=== PATIENT | female | born 1975 | race Caucasian/White ===

== ENCOUNTER 2017-03-04 08:29 | Emergency (ER) | payer MEDICAID ==
[2017-03-04 08:51] VITALS: BP 155/102
--- NOTE | 2017-03-04 09:41 | Emergency Department Report ---
ED ENT HPI - General Chief complaint: Sore Throat Stated complaint: STREP THROAT Time Seen by Provider: 03/04/17 09:19 Source: patient Mode of arrival: Ambulatory Limitations: No Limitations - History of Present Illness Initial comments: PT c/o sore throat x 2 days. Worse with swallowing. Son also sick with fever. MD complaint: sore throat Onset/Timin -: Gradual, days(s) Location: throat Severity: moderate Severity scale (0 -10): 5 Quality: aching Consistency: constant Worsens with: swallowing, eating Associated Symptoms: pain with swallowing, sore throat. denies: fever, cough - Related Data Previous Rx's Medication Instructions Recorded Last Taken Type Amoxicillin 500 mg PO BID #20 capsule 03/04/17 Unknown Rx Allergies Allergy/AdvReac Type Severity Reaction Status Date / Time No Known Allergies Allergy Unverified 03/04/17 08:51 ED Dental HPI - General Chief complaint: Sore Throat Stated complaint: STREP THROAT Time Seen by Provider: 03/04/17 09:19 Source: patient Mode of arrival: Ambulatory Limitations: No Limitations - Related Data Previous Rx's Medication Instructions Recorded Last Taken Type Amoxicillin 500 mg PO BID #20 capsule 03/04/17 Unknown Rx Allergies Allergy/AdvReac Type Severity Reaction Status Date / Time No Known Allergies Allergy Unverified 03/04/17 08:51 ED Review of Systems ROS: Stated complaint: STREP THROAT Other details as noted in HPI Comment: All other systems reviewed and negative Constitutional: malaise. denies: fever ENT: throat pain. denies: ear pain, congestion Gastrointestinal: denies: abdominal pain Neurological: denies: abnormal gait ED Past Medical Hx - Past Medical History Previous Medical History?: Yes Additional medical history: Vaginal delivery x 2 - Surgical History Past Surgical History?: Yes Additional Surgical History: Intestinal surgery @ a young age - Social History Smoking Status: Never Smoker Substance Use Type: Alcohol, Non Opiate Pain - Medications Home Medications: Home Medications Medication Instructions Recorded Confirmed Last Taken Type Amoxicillin 500 mg PO BID #20 capsule 03/04/17 Unknown Rx ED Physical Exam - General Limitations: No Limitations General appearance: alert, in no apparent distress - Head Head exam: Present: atraumatic, normocephalic, normal inspection - Eye Eye exam: Present: normal appearance, PERRL, EOMI. Absent: conjunctival injection - ENT ENT exam: Present: mucous membranes moist, TM's normal bilaterally, normal external ear exam. Absent: normal exam - Expanded ENT Exam Expanded Ear exam: Present: normal external inspection Mouth exam: Absent: drooling, trismus Teeth exam: Absent: dental caries Throat exam: Positive: tonsillar erythema, tonsillomegaly. Negative: tonsillar exudate, R peritonsillar mass, L peritonsillar mass - Neck Neck exam: Present: normal inspection, full ROM. Absent: tenderness, lymphadenopathy - Respiratory Respiratory exam: Present: normal lung sounds bilaterally, chest wall tenderness. Absent: respiratory distress - Cardiovascular Cardiovascular Exam: Present: normal rhythm, tachycardia - Extremities Exam Extremities exam: Present: normal inspection, full ROM - Back Exam Back exam: Present: normal inspection, full ROM - Neurological Exam Neurological exam: Present: alert, oriented X3, normal gait - Psychiatric Psychiatric exam: Present: normal affect, normal mood - Skin Skin exam: Present: warm, dry, intact, normal color. Absent: rash ED Course Vital Signs 03/04/17 08:47 Temperature 97.9 F Pulse Rate 109 H Respiratory 18 Rate Blood Pressure 155/102 O2 Sat by Pulse 97 Oximetry - Reevaluation(s) Reevaluation #1: 03/04/17 09:53 PT aware of dx and plan of care. - Pulse Oximetry Interpretation Digit-Finger Initial Pulse Oximetry Readin Actions Taken: none ED Medical Decision Making - Differential Diagnosis exudative pharyngitis, strep throat Critical Care Time: No Critical care attestation.: If time is entered above; I have spent that time in minutes in the direct care of this critically ill patient, excluding procedure time. ED Disposition Clinical Impression: Acute tonsillitis Qualifiers: Pharyngitis/tonsillitis etiology: unspecified etiology Qualified Code(s): J03.90 - Acute tonsillitis, unspecified Disposition: TO HOME OR SELFCARE Is pt being admited?: No Does the pt Need Aspirin: No Condition: Stable Instructions: Strep Throat (ED), Tonsillitis (ED), Hypertension (ED) Additional Instructions: Follow up with PCP in 3-5 days Have your BP rechecked at your follow up finish all your antibiotics Prescriptions: Amoxicillin 500 mg PO BID #20 capsule Referrals: SURJIT MOORE MD [Primary Care Provider] - 3-5 Days ANNE AGUIRRE MD [Staff Physician] - 3-5 Days Time of Disposition: 09:56
== END 2017-03-04 11:12 | disposition home or self-care (01) ==
LOC: ED 08:29
DX: J03.90 Acute tonsillitis, unspecified (principal)
CPT/HCPCS: 99282